=== PATIENT | female | born 1960 | race Caucasian/White ===

== ENCOUNTER 2019-10-11 22:47 | Emergency (ER) | payer OTHER ==
[~2019-10-11] VITALS: Ht 152.4 cm; Wt 58.1 kg
--- NOTE | 2019-10-11 22:50 | NUR ---
PT AAOX4. BIBSELF C/O GENERALIZED RASH WITH ITCHING C5 DAYS. WAS SEEN BY PMD AND WAS GIVEN RX, UNKNOWN. VSNeo. AT BEDSIDE FOR EVAL. AWAITING ORDERS.
[2019-10-11] MEDS ORDERED: DEXAMETHASONE SOD PHOSPHATE 10 MG/ML VIAL ONE (23:16)
[2019-10-11] MEDS ORDERED: diphenhydrAMINE HCL 50 MG/ML VIAL ONE (23:16)
[2019-10-11] MEDS ORDERED: DEXAMETHASONE SOD PHOSPHATE 10 MG/ML VIAL IM ONE (23:30)
[2019-10-11] MEDS ORDERED: diphenhydrAMINE HCL 50 MG/ML VIAL IM ONE (23:30)
--- NOTE | 2019-10-12 00:30 | NUR ---
Patient discharged to home in stable condition. Written and verbal after care instructions given. Patient verbalizes understanding of instruction and RX. Pt stated she feels better. VSS. Ambulated with steady gait.
[2019-10-12 00:31] VITALS: BP 117/75
== END 2019-10-12 00:31 | disposition home or self-care (01) ==
LOC: ER 22:47
DX: R21 Rash and other nonspecific skin eruption (principal)
CPT/HCPCS: 96372 ×2; 99284; J1100; J1200; J7030

== ENCOUNTER 2021-01-16 19:47 | Emergency (ER) | payer OTHER ==
[~2021-01-16] VITALS: Ht 160 cm; Wt 56.7 kg
--- NOTE | 2021-01-16 20:12 | NUR ---
PT BIBDAUGHTER C/O R LOWER BACK PAIN THAT RADIATES TO GROIN AND URINARY FREQUENCY. PT AAOX4 BREATHING EVENLY AND UNLABORED. PT ATTACHED TO MONITOR AND POX. PT GIVEN BLANKET AND CALL LIGHT WITHIN REACH.
[2021-01-16] MEDS ORDERED: KETOROLAC TROMETHAMINE 15 MG/ML VIAL ONE (20:21)
--- NOTE | 2021-01-16 20:25 | NUR ---
left fot ct
[2021-01-16] MEDS ORDERED: IV NS 0.9% 1,000 ML BAG IV ONE (20:30)
[2021-01-16] MEDS ORDERED: KETOROLAC TROMETHAMINE INJ 30 MG/ML VIAL IV ONE (20:30)
[2021-01-16 20:36] LABS: BASOPHILS # (AUTO) 0.1 K/uL (0.0-0.2); BASOPHILS % (AUTO) 0.7 % (0.0-2.0); EOSINOPHILS % (AUTO) 1.7 % (0.0-6.0); HEMATOCRIT 37 % (33-45); HEMOGLOBIN 12.2 g/dL (11.5-14.8); LYMPHOCYTES # (AUTO) 2.8 K/uL (0.8-4.8); LYMPHOCYTES % (AUTO) 31.1 % (20.0-44.0); MEAN CORPUSCULAR HGB CONC 33 g/dl (31.0-36.0); MEAN CORPUSCULAR VOLUME 90 fL (82-100); MONOCYTES # (AUTO) 0.9 K/uL (0.1-1.30); MONOCYTES % (AUTO) 9.6 % (2.0-12.0); NEUTROPHILS # (AUTO) 5.1 K/uL (1.8-8.9); NEUTROPHILS % (AUTO) 56.9 % (43.0-81.0); PLATELET COUNT (AUTO) 394 K/uL (150-450); RED BLOOD CELL COUNT(AUTO) 4.07 MIL/uL (4.0-5.2); WHITE BLOOD COUNT (AUTO) 8.9 K/uL (4.3-11.0)
--- NOTE | 2021-01-16 20:36 | NUR ---
RETURNED FROM CT
[2021-01-16 20:38] LABS: BILIRUBIN,URINE NEGATIVE (NEGATIVE); COLOR,URINE YELLOW (YELLOW); LEUKOCYTE ESTERASE ,URINE TRACE (NEGATIVE); NITRITE, URINE NEGATIVE (NEGATIVE); PH,URINE 5.5 (5.0-8.0); PROTEIN,URINE NEGATIVE (NEGATIVE); UGLUCOSE NEGATIVE (NEGATIVE); UROBILINOGEN,URINE 0.2 EU/dL (0.2)
[2021-01-16 20:43] LABS: BACTERIA,URINE RARE /HPF (None Seen); MUCUS,URINE Few /LPF (None Seen); RBC,URINE 0-2 /HPF (0-2)
[2021-01-16 20:50] LABS: CALCIUM, SERUM 9.3 mg/dL (8.5-10.1); CREATININE 0.8 mg/dL (0.6-1.3)
[2021-01-16] MEDS ORDERED: CEFTRIAXONE 1GM BAG (ER ONLY) 1 GM/50 ML PIGGYBACK IV ONE (21:00)
[2021-01-16] MEDS ORDERED: CEFTRIAXONE 1GM BAG (ER ONLY) 50 ML IV ONE (21:19)
[2021-01-16] MEDS ORDERED: CIPR-262 PO (21:32)
[2021-01-16] MEDS ORDERED: IBUP-1955 PO (21:32)
--- NOTE | 2021-01-16 21:38 | NUR ---
Patient discharged to home in stable condition. Written and verbal after care instructions given. Patient verbalizes understanding of instruction. Pt ambulatory with a steady gait. IV removed. Catheter intact and site benign. Pressure and 4x4 applied to site. No bleeding noted.
[2021-01-16 21:48] VITALS: BP 137/77
== END 2021-01-16 21:38 | disposition home or self-care (01) ==
LOC: ER 19:52
DX: N12 Tubulo-interstitial nephritis, not specified as acute or chronic (principal); Z79.899 Other long term (current) drug therapy
CPT/HCPCS: 36415; 74176; 80048; 81001; 83690; 85025; 87086; 96361; 96365; 96375; 99284; J0696; J1885; J7030